=== PATIENT | female | born 1945 | race Caucasian/White ===

== ENCOUNTER → 2020-12-18 | Outpatient (CLI) | payer MEDICARE | LOC: RAD 12:25 | DX: R05 Cough (principal); R91.8 Other nonspecific abnormal finding of lung field | CPT/HCPCS: 71046 ==

== ENCOUNTER 2021-04-06 09:20 | Emergency (ER) | payer MEDICARE | END 2021-04-06 10:35 | disposition home or self-care (01) | LOC: ER1 09:20 | DX: H92.02 Otalgia, left ear (principal); E11.9 Type 2 diabetes mellitus without complications; E78.5 Hyperlipidemia, unspecified; J44.9 Chronic obstructive pulmonary disease, unspecified; Z88.0 Allergy status to penicillin; Z88.2 Allergy status to sulfonamides | CPT/HCPCS: 99282 ==

== ENCOUNTER 2021-08-26 21:06 | Emergency (ER) | payer MEDICARE | END 2021-08-26 22:25 | disposition home or self-care (01) | LOC: ER1 21:06 | DX: Z00.00 Encounter for general adult medical examination without abnormal findings (principal); E11.9 Type 2 diabetes mellitus without complications; I10 Essential (primary) hypertension; F17.290 Nicotine dependence, other tobacco product, uncomplicated | CPT/HCPCS: 99282 ==

== ENCOUNTER 2021-11-12 21:03 | Emergency (ER) | payer MEDICARE | END 2021-11-12 23:17 | disposition home or self-care (01) | LOC: ER1 21:03 | DX: S92.512A Displaced fracture of proximal phalanx of left lesser toe(s), initial encounter for closed fracture (principal); Z88.0 Allergy status to penicillin; Z88.2 Allergy status to sulfonamides; W19.XXXA Unspecified fall, initial encounter | CPT/HCPCS: 73590; 73610; 73630; 99283 ==